=== PATIENT | female | born 1950 | race Caucasian/White ===

== ENCOUNTER → 2022-03-26 | Outpatient (CLI) | payer OTHER ==
[~2022-03-26] MED LIST: B-122500 MCG SL; CO Q-10100 MG PO; LISINOPRIL10 MG PO; NEURONTIN 100100 MG PO; PAROXETINE HCL40 MG PO; TYLENOL EXTRA500 MG PO; VITAMIN D; ZOCOR40 MG PO
[2022-03-26 11:23] LABS: HEMOGLOBIN 11.2 gm/dl (12.3-15.3); RED BLOOD COUNT 3.75 M/UL (4.00-5.10)
[2022-03-26 12:05] LABS: BUN/CREATININE RATIO 29 (0-10)
== END ==
LOC: OPSV2 10:00 → EDSTATUS 10:00 → OPSV2 10:13
PROVIDERS: Orthopaedic Surgery
DX: Z01.818 Encounter for other preprocedural examination (principal); M16.12 Unilateral primary osteoarthritis, left hip
CPT/HCPCS: 71046; 80048; 85025; 93005

== ENCOUNTER → 2022-04-07 | Outpatient (CLI) | payer OTHER ==
[~2022-04-07] MED LIST changes: +ELIQUIS 2.5 MG2.5 MG GT; +HYDROCODON-ACE1 EAC4 PO; -VITAMIN D; +VITAMIN D350 MCG PO
[2022-04-07 13:26] LABS: BUN/CREATININE RATIO 29 (0-10)
== END ==
LOC: LAB 11:30
PROVIDERS: Orthopaedic Surgery
DX: Z01.812 Encounter for preprocedural laboratory examination (principal)
CPT/HCPCS: 36415; 80048; 86850; 86900; 86901; 86920

== ENCOUNTER 2022-04-08 06:49 | Inpatient (IN) | payer OTHER ==
[~2022-04-08] VITALS: Ht 152.4 cm; Wt 55.3 kg
[~2022-04-08 06:49] MED LIST changes: -ELIQUIS 2.5 MG2.5 MG GT; -HYDROCODON-ACE1 EAC4 PO
[2022-04-08] MEDS ORDERED: HYDROCODON-ACE1 EAC4 PO (12:42)
[2022-04-08] MEDS ORDERED: ELIQUIS 2.5 MG2.5 MG GT (12:42)
[2022-04-08 19:34] LABS: BUN/CREATININE RATIO 30 (0-10)
[2022-04-09 04:56] LABS: HEMOGLOBIN 7.3 gm/dl (12.3-15.3); RED BLOOD COUNT 2.47 M/UL (4.00-5.10); WHITE BLOOD COUNT 8.6 K/UL (4.5-11.0)
[2022-04-09 09:01] LABS: BUN/CREATININE RATIO 29 (0-10)
[2022-04-09 16:46] LABS: WHITE BLOOD COUNT 10.7 K/UL (4.5-11.0)
[2022-04-09 17:08] LABS: BUN/CREATININE RATIO 22 (0-10)
[2022-04-09 17:27] LABS: HEMOGLOBIN 9.4 gm/dl (12.3-15.3); RED BLOOD COUNT 3.07 M/UL (4.00-5.10)
[2022-04-10 04:18] LABS: RED BLOOD COUNT 2.94 M/UL (4.00-5.10)
[2022-04-10 04:19] LABS: WHITE BLOOD COUNT 7.9 K/UL (4.5-11.0)
[2022-04-10 04:37] LABS: BUN/CREATININE RATIO 17 (0-10)
[2022-04-11 05:23] LABS: HEMOGLOBIN 9.2 gm/dl (12.3-15.3); RED BLOOD COUNT 3.06 M/UL (4.00-5.10)
[2022-04-11 05:27] LABS: WHITE BLOOD COUNT 13.8 K/UL (4.5-11.0)
[2022-04-11 06:54] LABS: BUN/CREATININE RATIO 24 (0-10)
[2022-04-11 10:02] LABS: HEMOGLOBIN 8.8 gm/dl (12.3-15.3)
[2022-04-12 05:05] LABS: HEMOGLOBIN 8.8 gm/dl (12.3-15.3); RED BLOOD COUNT 2.91 M/UL (4.00-5.10); WHITE BLOOD COUNT 11.9 K/UL (4.5-11.0)
[2022-04-12 05:43] LABS: BUN/CREATININE RATIO 36 (0-10)
[2022-04-12 11:28] LABS: BUN/CREATININE RATIO 37 (0-10)
[2022-04-13 06:34] LABS: HEMOGLOBIN 9.7 gm/dl (12.3-15.3)
[2022-04-13 06:38] LABS: RED BLOOD COUNT 3.22 M/UL (4.00-5.10); WHITE BLOOD COUNT 8.3 K/UL (4.5-11.0)
[2022-04-13 06:58] LABS: BUN/CREATININE RATIO 44 (0-10)
[2022-04-14 05:13] LABS: HEMOGLOBIN 9.2 gm/dl (12.3-15.3); RED BLOOD COUNT 3.03 M/UL (4.00-5.10); WHITE BLOOD COUNT 7.6 K/UL (4.5-11.0)
[2022-04-14 05:40] LABS: BUN/CREATININE RATIO 40 (0-10)
--- NOTE | 2022-04-14 09:00 | NUR ---
o2 sats 87% on room air
== END 2022-04-14 12:41 | disposition home or self-care (01) | DRG 469 ==
LOC: OR 06:49 → CCU 16:20 → OR 04-09 13:32 → CCU 04-11 12:40
PROVIDERS: Internal Medicine Infectious Disease; ADMIT Orthopaedic Surgery
PROC: 0SRB03A Replacement of Left Hip Joint with Ceramic Synthetic Substitute, Uncemented, Open Approach (ICD-10-PCS; principal; 2022-04-08 09:00)
PROC: B24BZZZ Ultrasonography of Heart with Aorta (ICD-10-PCS; 2022-04-12)
DX: M16.12 Unilateral primary osteoarthritis, left hip (principal); G92.8 Other toxic encephalopathy; Z20.822 Contact with and (suspected) exposure to COVID-19; J18.9 Pneumonia, unspecified organism; D62 Acute posthemorrhagic anemia; E22.2 Syndrome of inappropriate secretion of antidiuretic hormone; E87.2 Acidosis; G89.29 Other chronic pain; E78.5 Hyperlipidemia, unspecified; J44.9 Chronic obstructive pulmonary disease, unspecified; F41.9 Anxiety disorder, unspecified; F32.A Depression, unspecified; I50.9 Heart failure, unspecified; I11.0 Hypertensive heart disease with heart failure; E87.5 Hyperkalemia; I95.9 Hypotension, unspecified; Z96.642 Presence of left artificial hip joint; I27.20 Pulmonary hypertension, unspecified; T40.605A Adverse effect of unspecified narcotics, initial encounter; I08.3 Combined rheumatic disorders of mitral, aortic and tricuspid valves; E83.42 Hypomagnesemia; Z80.9 Family history of malignant neoplasm, unspecified; Z98.51 Tubal ligation status; Z98.42 Cataract extraction status, left eye; Z98.41 Cataract extraction status, right eye; Z82.49 Family history of ischemic heart disease and other diseases of the circulatory system
CPT/HCPCS: ECHO; 36415; 70450; 71045; 72170; 76000; 80048; 80053; 82140; 83735; 83880; 84443; 85014; 85018; 85025; 93306; 97110-GP-CQ; 97116-GP-CQ; 97162; 97166; 97530; 97535; C1776; G0378; J0690; J1100; J1170; J1335; J1630; J1650; J1940; J2270; J2274; J2370; J2405; J2704; J3010; J3370; J3475; J3486; J7050

== ENCOUNTER 2022-05-07 01:37 | Observation (INO) | payer OTHER ==
[~2022-05-07] VITALS: Ht 152.4 cm; Wt 51.3 kg
[~2022-05-07 01:37] MED LIST changes: +ELIQUIS 2.5 MG2.5 MG GT; +HYDROCODON-ACE1 EAC4 PO
[2022-05-07 03:40] LABS: HEMOGLOBIN 9.5 gm/dl (12.3-15.3); RED BLOOD COUNT 3.17 M/UL (4.00-5.10); WHITE BLOOD COUNT 7.6 K/UL (4.5-11.0)
[2022-05-07 03:55] LABS: BUN/CREATININE RATIO 26 (0-10)
--- NOTE | 2022-05-07 14:23 | NUR ---
PATIENT ON THE WAY TO SURGERY FOR HER HIP. PATIENT IN GOOD SPIRITS.
[2022-05-07] MEDS ORDERED: HYDROCODON-ACE1 EAC6 PO (15:36)
--- NOTE | 2022-05-07 16:18 | NUR ---
PATIENT RETURNED FROM SURGERY
[2022-05-08 04:21] LABS: HEMOGLOBIN 8.9 gm/dl (12.3-15.3); RED BLOOD COUNT 3.02 M/UL (4.00-5.10)
[2022-05-08 04:28] LABS: WHITE BLOOD COUNT 5.5 K/UL (4.5-11.0)
[2022-05-08] MEDS ORDERED: LOPRESSOR 25 MG25 MG PO (09:42)
[2022-05-08] MEDS ORDERED: MAGNESIUM OXID400 M1 PO (10:56)
[2022-05-08] MEDS ORDERED: HYDRALAZINE HCL25 MG PO (11:06)
== END 2022-05-08 13:01 | disposition home or self-care (01) ==
LOC: M/S 01:58
PROVIDERS: ADMIT Family Medicine
DX: T84.021A Dislocation of internal left hip prosthesis, initial encounter (principal); I10 Essential (primary) hypertension; E78.5 Hyperlipidemia, unspecified; J44.9 Chronic obstructive pulmonary disease, unspecified; E83.42 Hypomagnesemia; F41.9 Anxiety disorder, unspecified; F32.A Depression, unspecified; E53.8 Deficiency of other specified B group vitamins; E55.9 Vitamin D deficiency, unspecified
CPT/HCPCS: 36415; 72170; 73501; 73502; 76000; 80048; 83735; 85025; 85610; 85730; 86850; 86900; 86901; 93005; 96372; 96374; 96375; 97161; 97165; G0378; G0379; J0360; J2704; J3010; J3475